=== PATIENT | male | born 1995 | race Caucasian/White ===

== ENCOUNTER 2022-01-13 18:06 | Emergency (ER) | payer SELFPAY ==
[2022-01-13 18:39] LABS: Absolute Lymphocytes (CBC) 3.5 K/uL (0.7-4.9); Hematocrit 48.1 % (39.6-49.0); Lymphocytes % 27.5 % (15.3-44.8); MPV 9.1 fL (7.6-11.3)
[2022-01-13 18:46] LABS: Potassium 4.1 mmol/L (3.5-5.1)
[2022-01-13] MEDS ORDERED: NA CHLORIDE 0.9% 1,000 ML ONE (19:41)
--- NOTE | 2022-01-13 20:07 | ER ---
Nurse's Notes [facility] Name: Eulogio Adhikari Age: 26 yrs Sex: Male : 1995 Arrival Date: 01/13/2022 Time: 18:13 Bed 8 Private MD: Diagnosis: Shortness of breath Presentation: 01/13 18:15 Chief complaint: Patient states: I have been having chest pressure/tightness for two ld1 weeks - today I began to notice it much more. Pt denies pain. Coronavirus screen: At this time, the client does not indicate any symptoms associated with coronavirus-19. Ebola Screen: No symptoms or risks identified at this time. Initial Sepsis Screen: Does the patient meet any 2 criteria? No. Patient's initial sepsis screen is negative. Does the patient have a suspected source of infection? No. Patient's initial sepsis screen is negative. Risk Assessment: Do you want to hurt yourself or someone else? Patient reports no desire to harm self or others. Onset of symptoms was January 13, 2022. 18:15 Method Of Arrival: Ambulatory ld1 18:15 Acuity: SANDHYA 3 ld1 Triage Assessment: 18:16 General: Appears in no apparent distress. comfortable, Behavior is calm, cooperative, ld1 appropriate for age. Pain: Denies pain. EENT: No signs and/or symptoms were reported regarding the EENT system. Neuro: Level of Consciousness is awake, alert, obeys commands, Oriented to person, place, time, situation, Appropriate for age. Cardiovascular: Capillary refill < 3 seconds Patient's skin is warm and dry. Respiratory: Airway is patent Respiratory effort is even, unlabored, Respiratory pattern is regular, symmetrical. GI: Abdomen is round non-distended. : No signs and/or symptoms were reported regarding the genitourinary system. Derm: No signs and/or symptoms reported regarding the dermatologic system. Musculoskeletal: No signs and/or symptoms reported regarding the musculoskeletal system. Reports. Historical: - Allergies: 18:16 No Known Allergies; ld1 - Home Meds: 18:16 None [Active]; ld1 - PMHx: 18:16 None; ld1 - PSHx: 18:16 None; ld1 - Immunization history:: Adult Immunizations up to date, Client reports having NOT received the Covid vaccine. - Social history:: Smoking status: Patient denies any tobacco usage or history of. Patient/guardian denies using alcohol. Screenin:30 Abuse screen: Denies threats or abuse. Denies injuries from another. Nutritional ic1 screening: No deficits noted. Tuberculosis screening: No symptoms or risk factors identified. Fall Risk None identified. Assessment: 18:30 General: Appears in no apparent distress. comfortable, Behavior is calm, cooperative. ic1 Pain: Denies pain. Neuro: Level of Consciousness is awake, alert, obeys commands, Oriented to person, place, time, situation, Reports chest tightness x 2wks and a cough when he exerts himself. . Cardiovascular: Reports chest tightness x 2 weeks ago. Respiratory: Reports cough that is. GI: No deficits noted. : No deficits noted. EENT: No deficits noted. Derm: No deficits noted. Musculoskeletal: No deficits noted. 19:00 Reassessment: Patient is alert, oriented x 3, equal unlabored respirations, skin ic1 warm/dry/pink. xray at pt's bedside. 19:16 General: Appears in no apparent distress. comfortable. Pain: Denies pain. as6 Cardiovascular: Denies chest pain. Respiratory: Airway is patent Trachea midline Respiratory effort is even, unlabored, Respiratory pattern is regular, symmetrical. 19:41 Pain: Complains of pain in chest Pain currently is 2 out of 10 on a pain scale. Quality tw5 of pain is described as pressure. Vital Signs: 18:15 BP 122 / 97; Pulse 116; Resp 18; Temp 98.8; Pulse Ox 96% on R/A; Weight 108.86 kg; ld1 Height 5 ft. 11 in. (180.34 cm); Pain 0/10; 19:16 BP 135 / 90; Pulse 99; Resp 20 S; Pulse Ox 94% on R/A; as6 20:16 BP 128 / 74; Pulse 88; Resp 16 S; Pulse Ox 100% on R/A; as6 18:15 Body Mass Index 33.47 (108.86 kg, 180.34 cm) ld1 ED Course: 18:13 Patient arrived in ED. as 18:13 Reji Majano MD is Attending Physician. kdr 18:16 Triage completed. ld1 18:16 Arm band placed on right wrist. ld1 18:27 No provider procedures requiring assistance completed. Inserted saline lock: 20 gauge ic1 in right antecubital area, using aseptic technique. Blood collected. Patient maintains SpO2 saturation greater than 95% on room air. 18:29 Basic Metabolic Panel Sent. ic1 18:29 Basic Metabolic Panel Sent. ic1 18:30 Patient has correct armband on for positive identification. Placed in gown. Bed in low ic1 position. Call light in reach. Side rails up X2. cardiac monitor technician on. Pulse ox on. NIBP on. Door closed. Noise minimized. Lights dimmed. Warm blanket given. 18:30 CBC with Diff Sent. ic1 18:30 Troponin HS Sent. ic1 19:05 XRAY Chest (1 view) In Process Unspecified. EDMS 19:06 John Michael, SANDHYA is Primary Nurse. as6 19:54 Primary Nurse role handed off by John Michael, SANDHYA tw5 19:54 Jaclyn Anderson is Primary Nurse. tw5 20:17 IV discontinued, intact, bleeding controlled, No redness/swelling at site. Pressure as6 dressing applied. Administered Medications: 19:41 Drug: NS 0.9% 1000 ml Route: IV; Rate: 1 bolus; Site: right forearm; tw5 20:16 Follow up: Response: No adverse reaction; IV Status: Completed infusion; IV Intake: as6 1000ml Intake: 20:16 IV: 1000ml; Total: 1000ml. as6 Outcome: 20:06 Discharge ordered by . kdr 20:16 Discharged to home ambulatory. as6 20:16 Condition: stable 20:16 Discharge instructions given to patient, Instructed on discharge instructions, follow up and referral plans. Demonstrated understanding of instructions, follow-up care. 20:24 Patient left the ED. as6 Signatures: Dispatcher [employer] EDMS Reji Majano MD MD kdr Martinez, Amelia as Almita Hughes, SANDHYA RN ld1 Jaclyn Anderson tw5 John Michael, SANDHYA ARTHUR as6 Rosie Rosado RN RN ic1
--- NOTE | 2022-01-13 20:07 | EDPHYS ---
Physician Documentation [facility] Name: Eulogio Adhikari Age: 26 yrs Sex: Male : 1995 Arrival Date: 01/13/2022 Time: 18:13 Bed 8 Private MD: ED Physician Reji Majano HPI: 01/13 19:57 This 26 yrs old Male presents to ER via Ambulatory with complaints of Chest Tightness, kdr Shortness Of Breath. 19:57 The patient or guardian reports chest pain that is located primarily in the chest kdr diffusely. The pain does not radiate. Associated signs and symptoms: Pertinent positives: shortness of breath. The chest pain is described as dull. Duration: The patient or guardian reports multiple episodes, that are intermittent, that wax and wane, with no pattern. Modifying factors: The symptoms are alleviated by nothing. States that sometimes albuterol helps. the symptoms are aggravated by. 20:00 The patient has shortness of breath at rest, with light activity. Onset: The kdr symptoms/episode began/occurred suddenly, Intermittent shortness of breath that seems to improve with albuterol treatments. Duration: The symptoms are intermittent, with no pattern. The patient's shortness of breath is aggravated by light activity, talking, walking, is alleviated by inhaler. Associated signs and symptoms: Pertinent positives: Pertinent negatives: chest pain, non-productive cough, productive cough, diaphoresis, dizziness, fever, hemoptysis, loss of consciousness, nausea, numbness in extremities, visual changes, vomiting. Severity of symptoms: At their worst the symptoms were mild in the emergency department the symptoms have improved moderately. The patient has experienced similar episodes in the past, a few times. The patient has not recently seen a physician. Historical: - Allergies: 18:16 No Known Allergies; ld1 - Home Meds: 18:16 None [Active]; ld1 - PMHx: 18:16 None; ld1 - PSHx: 18:16 None; ld1 - Immunization history:: Adult Immunizations up to date, Client reports having NOT received the Covid vaccine. - Social history:: Smoking status: Patient denies any tobacco usage or history of. Patient/guardian denies using alcohol. ROS: 20:00 Constitutional: Negative for fever, chills, and weight loss, Eyes: Negative for injury, kdr pain, redness, and discharge, ENT: Negative for injury, pain, and discharge, Neck: Negative for injury, pain, and swelling, Cardiovascular: Negative for chest pain, palpitations, and edema, Abdomen/GI: Negative for abdominal pain, nausea, vomiting, diarrhea, and constipation, Back: Negative for injury and pain, : Negative for injury, bleeding, discharge, and swelling, MS/Extremity: Negative for injury and deformity, Skin: Negative for injury, rash, and discoloration, Neuro: Negative for headache, weakness, numbness, tingling, and seizure activity. Psych: Negative for depression, anxiety, suicide ideation, homicidal ideation, and hallucinations, Allergy/Immunology: Negative for hives, rash, and allergies, Endocrine: Negative for neck swelling, polydipsia, polyuria, polyphagia, and marked weight changes, Hematologic/Lymphatic: Negative for swollen nodes, abnormal bleeding, and unusual bruising. 20:00 Respiratory: Positive for dyspnea on exertion, shortness of breath, wheezing, Shortness of breath with talking and exertion. Exam: 18:51 ECG was reviewed by the Attending Physician. kdr 20:00 Constitutional: This is a well developed, well nourished patient who is awake, alert, kdr and in no acute distress. Head/Face: Normocephalic, atraumatic. Eyes: Pupils equal round and reactive to light, extra-ocular motions intact. Lids and lashes normal. Conjunctiva and sclera are non-icteric and not injected. Cornea within normal limits. Periorbital areas with no swelling, redness, or edema. Neck: Trachea midline, no thyromegaly or masses palpated, and no cervical lymphadenopathy. Supple, full range of motion without nuchal rigidity, or vertebral point tenderness. No Meningismus. Chest/axilla: Normal chest wall appearance and motion. Nontender with no deformity. No lesions are appreciated. Cardiovascular: Regular rate and rhythm with a normal S1 and S2. No gallops, murmurs, or rubs. Normal PMI, no JVD. No pulse deficits. Respiratory: Lungs have equal breath sounds bilaterally, clear to auscultation and percussion. No rales, rhonchi or wheezes noted. No increased work of breathing, no retractions or nasal flaring. Abdomen/GI: Soft, non-tender, with normal bowel sounds. No distension or tympany. No guarding or rebound. No evidence of tenderness throughout. Back: No spinal tenderness. No costovertebral tenderness. Full range of motion. Skin: Warm, dry with normal turgor. Normal color with no rashes, no lesions, and no evidence of cellulitis. MS/ Extremity: Pulses equal, no cyanosis. Neurovascular intact. Full, normal range of motion. Neuro: Awake and alert, GCS 15, oriented to person, place, time, and situation. Cranial nerves II-XII grossly intact. Motor strength 5/5 in all extremities. Sensory grossly intact. Cerebellar exam normal. Normal gait. Psych: Awake, alert, with orientation to person, place and time. Behavior, mood, and affect are within normal limits. 20:00 Cardiovascular: Patient was initially noted to be tachycardic. He was slightly short of breath at the time. Sometime in the ED, the patient's vital signs normalized. Anecdotally noted that when he straightens his legs out his rate increased and when he folded his legs under him his rate decreased. Well-appearing and nontoxic in the ED.. Vital Signs: 18:15 BP 122 / 97; Pulse 116; Resp 18; Temp 98.8; Pulse Ox 96% on R/A; Weight 108.86 kg; ld1 Height 5 ft. 11 in. (180.34 cm); Pain 0/10; 19:16 BP 135 / 90; Pulse 99; Resp 20 S; Pulse Ox 94% on R/A; as6 20:16 BP 128 / 74; Pulse 88; Resp 16 S; Pulse Ox 100% on R/A; as6 18:15 Body Mass Index 33.47 (108.86 kg, 180.34 cm) ld1 MDM: 20:00 Data reviewed: vital signs, nurses notes, lab test result(s), radiologic studies. kdr Counseling: I had a detailed discussion with the patient and/or guardian regarding: the historical points, exam findings, and any diagnostic results supporting the discharge/admit diagnosis, lab results, radiology results, the need for outpatient follow up. ED course: She was stable and nonacute in the ED. He improved without further intervention. He was happy with the care provided and the plan for discharge and follow-up. 20:06 Patient medically screened. kdr 01/13 18:21 Order name: Basic Metabolic Panel kdr 01/13 18:21 Order name: CBC with Diff; Complete Time: 18:48 kdr 01/13 18:21 Order name: Troponin HS; Complete Time: 19:26 kdr 01/13 18:21 Order name: XRAY Chest (1 view); Complete Time: 20:13 kdr 01/13 18:22 Order name: Basic Metabolic Panel; Complete Time: 19:26 EDMS 01/13 18:33 Order name: D-Dimer; Complete Time: 19:26 kdr 01/13 18:21 Order name: EKG; Complete Time: 18:22 kdr 01/13 18:21 Order name: Cardiac monitoring; Complete Time: 18:29 kdr 01/13 18:21 Order name: EKG - Nurse/Tech; Complete Time: 18:29 kdr 01/13 18:21 Order name: IV Saline Lock; Complete Time: 18:29 kdr 01/13 18:21 Order name: Labs collected and sent; Complete Time: 18:29 kdr 01/13 18:21 Order name: O2 Per Protocol; Complete Time: 18:29 kdr 01/13 18:21 Order name: O2 Sat Monitoring; Complete Time: 18:30 kdr EC:51 Rate is 109 beats/min. Rhythm is regular, Sinus tachycardia with No ectopy. QRS [place] is kdr Normal. [place] interval is normal. QRS interval is normal. Clinical impression: Sinus tachycardia. Administered Medications: 19:41 Drug: NS 0.9% 1000 ml Route: IV; Rate: 1 bolus; Site: right forearm; tw5 20:16 Follow up: Response: No adverse reaction; IV Status: Completed infusion; IV Intake: as6 1000ml Disposition Summary: 01/13/22 20:06 Discharge Ordered Location: Home kdr Problem: new kdr Symptoms: have improved kdr Condition: Stable kdr Diagnosis - Shortness of breath kdr Followup: kdr - With: Private Physician - When: 2 - 3 days - Reason: If symptoms return, Further diagnostic work-up, Recheck today's complaints, Continuance of care, Re-evaluation by your physician Discharge Instructions: - Discharge Summary Sheet kdr - Shortness of Breath, Adult, [id number] kdr Forms: - Medication Reconciliation Form kdr - Thank You Letter kdr Prescriptions: - albuterol sulfate 90 mcg/actuation Inhalation HFA aerosol inhaler - inhale 2 puff by INHALATION route every 4 hours; 2 Pump; Refills: 0, Product ms3 Selection Permitted Signatures: Dispatcher [employer] Reji Lala MD MD kdr Dibbern, Lauren RN RN ld1 Jaclyn Anderson tw5 John Michael RN as6
--- NOTE | 2022-01-13 20:09 | RAD REPORT ---
EXAM DESCRIPTION: RAD - Chest Single View - 01/13/2022 7:05 pm CLINICAL HISTORY: CHEST PAIN, shortness of breath COMPARISON: None TECHNIQUE: AP portable chest image was obtained 01/13/2022 7:05 pm . FINDINGS: Lungs are clear. Heart and vasculature are normal. No measurable pleural effusion and no p neumothorax. No acute bony abnormality seen. No acute aortic findings suspected. IMPRESSION: No acute cardiopulmonary process.
[2022-01-13 23:04] VITALS: TEMP 98.8
[2022-01-13 23:06] VITALS: BP 128/74; O2SAT 100
--- NOTE | 2022-01-14 08:21 | EKG ---
Test Date: 2022-01-13 Test Time: 18:25:16 Card Maker: ORLY MEASUREMENT RESULTS: Intervals: Rate: 109 RI: 150 QRSD: 64 QT: 306 QTc: 412 [place]: P: 47 RI: 150 QRS: 28 T: 22 INTERPRETIVE STATEMENTS: Sinus tachycardia Possible Left atrial enlargement Borderline ECG No previous ECG available for comparison Electronically Signed On 01-14-22 08:19:31 CDT by Gómez Griffin
== END 2022-01-13 20:24 | disposition home or self-care (01) ==
LOC: ER 18:06
DX: R06.02 Shortness of breath (principal)
CPT/HCPCS: 36415; 71045; 80048; 84484; 85025; 85379; 93005; 96360; 99285; J7030